=== PATIENT | male | born 1975 | race Caucasian/White ===

== ENCOUNTER 2018-03-07 10:01 | Emergency (ER) | payer OTHER ==
[~2018-03-07] VITALS: Ht 175.3 cm; Wt 77.1 kg
[~2018-03-07 10:01] MED LIST: AMOX500 PO; HYDACE5 PO; Zofran Odt4 MG SL
[2018-03-07] MEDS ORDERED: ASCO500 PO (10:27)
[2018-03-07] MEDS ORDERED: L-Lysine500 M1 PO (10:27)
[2018-03-07] MEDS ORDERED: PRED10 PO (11:45)
== END 2018-03-07 11:56 | disposition home or self-care (01) ==
LOC: ER 10:01
DX: H57.11 Ocular pain, right eye (principal); Z79.899 Other long term (current) drug therapy; F17.200 Nicotine dependence, unspecified, uncomplicated
CPT/HCPCS: 99283

== ENCOUNTER → 2020-04-09 | Outpatient (CLI) | payer OTHER ==
[~2020-04-09] MED LIST changes: +ASCO500 PO; +L-Lysine500 M1 PO; +PRED10 PO
[2020-04-11 18:09] LABS: CHLAMYDIA TRACHOMATIS, NAA Negative (Negative)
== END ==
LOC: LAB SHORT 09:11 → LAB 09:11 → EDSTATUS 09:52
PROVIDERS: Family Medicine
DX: R30.9 Painful micturition, unspecified (principal); Z13.0 Encounter for screening for diseases of the blood and blood-forming organs and certain disorders involving the immune mechanism; Z13.228 Encounter for screening for other metabolic disorders; Z72.51 High risk heterosexual behavior; Z91.89 Other specified personal risk factors, not elsewhere classified
CPT/HCPCS: 87491; 87591